=== PATIENT | female | born 1930 | race American Indian/Alaskan Native ===

== ENCOUNTER 2019-11-26 14:31 | Emergency (ER) | payer OTHER ==
--- NOTE | 2019-11-26 15:45 | ER ---
Nurse's Notes [facility] Name: Nola Henry Age: 89 yrs Sex: Female : 1930 Arrival Date: 11/26/2019 Time: 14:34 Bed 19 Private MD: Diagnosis: Dental caries;Periapical abscess without sinus Presentation: 11/26 14:45 Presenting complaint: Patient states: Swelling right side of face, pain on lower jaw x rb1 couple weeks. Presenting complaint:. Transition of care: patient was not received from another setting of care. Onset of symptoms is unknown. Risk Assessment: Do you want to hurt yourself or someone else? Patient reports no desire to harm self or others. 14:45 Method Of Arrival: Ambulatory rb1 14:45 Acuity: ESCOBAR 4 rb1 15:10 Initial Sepsis Screen: Does the patient meet any 2 criteria? No. Patient's initial bp sepsis screen is negative. Does the patient have a suspected source of infection? No. Patient's initial sepsis screen is negative. Care prior to arrival: None. Triage Assessment: 14:45 General: Appears in no apparent distress. comfortable, Behavior is calm, cooperative. rb1 Pain:. Neuro: Level of Consciousness is awake, alert, obeys commands, Oriented to person, place, time, situation. Respiratory: Airway is patent Respiratory effort is even, unlabored, Respiratory pattern is regular, symmetrical. Derm: Skin is pink, warm \T\ dry. Historical: - Allergies: 14:40 PENICILLINS; rb1 - PMHx: 14:40 Hypertension; cardiac stent; Glaucoma; rb1 - PSHx: 14:40 Cholecystectomy; Hysterectomy; rb1 - Immunization history:: Adult Immunizations unknown. - Coronavirus screen:: The patient has NOT traveled to [place], [place], or [place] in the past 14 days. The patient has NOT had contact with known/suspected case of Coronavirus? Proceed with normal triage procedures. - Social history:: Smoking status: unknown. - Ebola Screening: : No symptoms or risks identified at this time. Screenin:09 Abuse screen: Denies threats or abuse. Denies injuries from another. Nutritional bp screening: No deficits noted. Tuberculosis screening: No symptoms or risk factors identified. Fall Risk None identified. Assessment: 15:09 General: SEE TRIAGE NOTE. bp 16:32 Reassessment: PT D/C HOME AMBULATORY WITH FAMILY, DX WITH PERIAPICAL ABSCESS. bp Vital Signs: 14:45 BP 100 / 61; Pulse 84; Resp 17; Temp 97.5(TE); Pulse Ox 96% on R/A; Weight 58.97 kg rb1 (R); Height 5 ft. 2 in. (157.48 cm) (R); Pain 8/10; 16:32 BP 109 / 65; Pulse 79; Resp 17; Temp 97.5; Pulse Ox 97% ; bp 14:45 Body Mass Index 23.78 (58.97 kg, 157.48 cm) rb1 ED Course: 14:34 Patient arrived in ED. as 14:45 Arm band placed on right wrist. rb1 14:48 Triage completed. rb1 15:06 Gerard Boyd NP [facility]. pm1 15:06 Ward Rudd MD is Attending Physician. pm1 15:08 Jose Antonio Robison, TEODORA is Primary Nurse. bp 15:09 Patient has correct armband on for positive identification. Bed in low position. Call bp light in reach. Side rails up X2. 16:32 No provider procedures requiring assistance completed. Patient did not have IV access bp during this emergency room visit. Administered Medications: 16:01 Drug: Clindamycin 600 mg Route: IM; Site: right gluteus; bp 16:02 Follow up: Response: No adverse reaction bp Outcome: 15:44 Discharge ordered by . pm1 16:32 Discharged to home ambulatory, with family. bp 16:32 Condition: stable 16:32 Discharge instructions given to patient, family, Instructed on discharge instructions, follow up and referral plans. Demonstrated understanding of Prescriptions given X 1. 16:34 Patient left the ED. bp Signatures: Laura Erickson Rebecca, RN RN rb1 Gerard Boyd NP LAUNDRY MANAGER pm1 Jose Antonio Robison, TEODORA RN bp
--- NOTE | 2019-11-26 15:45 | EDPHYS ---
Physician Documentation [facility] Name: Nola Henry Age: 89 yrs Sex: Female : 1930 Arrival Date: 11/26/2019 Time: 14:34 Bed 19 Private MD: ED Physician Ward Rudd HPI: 11/26 15:42 This 89 yrs old Female presents to ER via Ambulatory with complaints of pm1 Dental Pain and facial swelling. 15:42 The patient presents with pain. The problem is located in the lower right second molar. pm1 15:42 Onset: The symptoms/episode began/occurred 3 day(s) ago. Modifying factors: The pm1 symptoms are alleviated by nothing. Associated signs and symptoms: Pertinent positives: swelling, mandibular, Pertinent negatives: chills, dysphagia, fever, inability to eat. Severity of symptoms: in the emergency department the symptoms are actually worse. Has not seen a dentist yet, but called about symptoms and was called in clindamycin and tylenol #3 prescriptions yesterday. Has taken 5 pills of clindamycin 300 mg so far. Historical: - Allergies: 14:40 PENICILLINS; rb1 - PMHx: 14:40 Hypertension; cardiac stent; Glaucoma; rb1 - PSHx: 14:40 Cholecystectomy; Hysterectomy; rb1 - Immunization history:: Adult Immunizations unknown. - Coronavirus screen:: The patient has NOT traveled to [place], [place], or [place] in the past 14 days. The patient has NOT had contact with known/suspected case of Coronavirus? Proceed with normal triage procedures. - Social history:: Smoking status: unknown. - Ebola Screening: : No symptoms or risks identified at this time. ROS: 15:42 Constitutional: Negative for fever, chills, and weight loss. pm1 15:42 Neck: Negative for injury, pain, and swelling, Cardiovascular: Negative for chest pain, palpitations, and edema, Respiratory: Negative for shortness of breath, cough, wheezing, and pleuritic chest pain, Abdomen/GI: Negative for abdominal pain, nausea, vomiting, diarrhea, and constipation. 15:42 ENT: Positive for dental pain, Negative for dental pain, difficulty swallowing, difficulty handling secretions, hoarseness. 15:42 All other systems are negative. Exam: 15:42 Constitutional: This is a well developed, well nourished patient who is awake, alert, pm1 and in no acute distress. Head/Face: Normocephalic, atraumatic. 15:42 Chest/axilla: Normal chest wall appearance and motion. Nontender with no deformity. No lesions are appreciated. Cardiovascular: Regular rate and rhythm with a normal S1 and S2. No gallops, murmurs, or rubs. No pulse deficits. Respiratory: Lungs have equal breath sounds bilaterally, clear to auscultation and percussion. No rales, rhonchi or wheezes noted. No increased work of breathing, no retractions or nasal flaring. MS/ Extremity: Pulses equal, no cyanosis. Neurovascular intact. Full, normal range of motion. 15:42 ENT: External ear(s): are unremarkable, Ear canal(s): are normal, TM's: are normal, Mouth: no acute changes, Gums: No abscess appreciated, Dental exam: abscess, is not appreciated, pain, that is mild, specifically in the lower right second molar (#31), right second and third molar eroded to the gum line . 15:42 Neck: Lymph nodes: no appreciated lymphadenopathy. 15:42 Skin: Appearance: normal except for affected area, 2cm x 1.5 cm area of swelling to right mandible. No fluctuance, redness or erythema present . Vital Signs: 14:45 BP 100 / 61; Pulse 84; Resp 17; Temp 97.5(TE); Pulse Ox 96% on R/A; Weight 58.97 kg rb1 (R); Height 5 ft. 2 in. (157.48 cm) (R); Pain 8/10; 16:32 BP 109 / 65; Pulse 79; Resp 17; Temp 97.5; Pulse Ox 97% ; bp 14:45 Body Mass Index 23.78 (58.97 kg, 157.48 cm) rb1 MDM: 15:14 Patient medically screened. pm1 15:42 Data reviewed: vital signs. Data interpreted: Pulse oximetry: on room air is 96 %. pm1 Interpretation: normal. Counseling: I had a detailed discussion with the patient and/or guardian regarding: the historical points, exam findings, and any diagnostic results supporting the discharge/admit diagnosis, the need for outpatient follow up, for definitive care, a dentist, to return to the emergency department if symptoms worsen or persist or if there are any questions or concerns that arise at home. 15:42 ED course: Patient was called in Tylenol #3 and clindamycin by her dentist yesterday. pm1 She has taken 5 doses of clindamycin 300 mg PO. Daughter was concerned about compliance, therefore will load her with IM dosage and instructed to continue taking every 6 hours after IM dose. Recommended probiotics. Reports not much symptom relief with Tylenol #3 therefore will prescribe ultracet. Administered Medications: 16:01 Drug: Clindamycin 600 mg Route: IM; Site: right gluteus; bp 16:02 Follow up: Response: No adverse reaction bp Disposition: 17:40 Co-signature as Attending Physician, Ward Rudd MD. rn Disposition: 11/26/19 15:44 Discharged to Home. Impression: Periapical abscess without sinus, Dental caries. - Condition is Stable. - Discharge Instructions: Dental Abscess, Dental Pain, Diet and Dental Disease. - Prescriptions for Ultracet 37.5- 325 mg Oral Tablet - take 1 tablet by ORAL route every 8 hours As needed - for up to 5 days; do not exceed 8 tablets per day.; 12 tablet. - Medication Reconciliation Form, Thank You Letter, Antibiotic Education, Prescription Opioid Use form. - Follow up: Emergency Department; When: As needed; Reason: Worsening of condition. Follow up: Private Physician; When: 2 - 3 days; Reason: Recheck today's complaints, Continuance of care, Re-evaluation by your physician. - Problem is new. - Symptoms have improved. Signatures: Ward Rudd MD MD rn Barber, Rebecca, TEODORA RN rb1 Gerard Boyd NP DONATION WORKER pm1 Jose Antonio Robison RN RN bp Corrections: (The following items were deleted from the chart) 16:07 15:44 11/26/2019 15:44 Discharged to Home. Impression: Dental caries. Condition is pm1 Stable. Forms are Medication Reconciliation Form, Thank You Letter, Antibiotic Education, Prescription Opioid Use. Follow up: Emergency Department; When: As needed; Reason: Worsening of condition. Follow up: Private Physician; When: 2 - 3 days; Reason: Recheck today's complaints, Continuance of care, Re-evaluation by your physician. Problem is new. Symptoms have improved. pm1 16:34 16:07 11/26/2019 15:44 Discharged to Home. Impression: Periapical abscess without bp sinusDental caries. Condition is Stable. Discharge Instructions: Dental Pain. Prescriptions for Ultracet 37.5-325 mg Oral Tablet - take 1 tablet by ORAL route every 8 hours As needed - for up to 5 days; do not exceed 8 tablets per day.; 12 tablet. and Forms are Medication Reconciliation Form, Thank You Letter, Antibiotic Education, Prescription Opioid Use. Follow up: Emergency Department; When: As needed; Reason: Worsening of condition. Follow up: Private Physician; When: 2 - 3 days; Reason: Recheck today's complaints, Continuance of care, Re-evaluation by your physician. Problem is new. Symptoms have improved. pm1
[2019-11-26] MEDS ORDERED: CLINDAMYCIN IV 150 MG/ML (4 mL) VIAL ONE (15:58)
[2019-11-26 16:57] VITALS: TEMP 97.5
[2019-11-26 16:59] VITALS: BP 109/65; O2SAT 97
== END 2019-11-26 16:34 | disposition home or self-care (01) ==
LOC: ER 14:31
DX: K02.9 Dental caries, unspecified (principal); K04.7 Periapical abscess without sinus; Z88.0 Allergy status to penicillin
CPT/HCPCS: 96372; 99283; S0077